=== PATIENT | male | born 1990 | race Caucasian/White ===

== ENCOUNTER 2016-09-16 19:07 | Emergency (ER) | payer SELFPAY ==
[2016-09-16 20:00] VITALS: BP 137/80
[2016-09-16] MEDS ORDERED: Oseltamivir CAP* 75 MG PO ONE (20:28)
--- NOTE | 2016-09-16 20:39 | UC ---
FLU HPI - HPI Summary HPI Summary: ONE DAY OF RUNNY NOSE HEADACHE BODY ACHES FEVER CHILLS. DAUGHTER HAS POSITIVE FLU SWAB - History of Current Complaint Chief Complaint: UC Stated Complaint: FLU LIKE SMPTOMS Time Seen by Provider: 09/16/16 19:54 Hx Obtained From: Patient Onset/Duration: Sudden Onset, Lasting Hours, Still Present, Worse Since - PROGRESSIVE Severity Currently: Moderate Severity Initially: Moderate Associated Signs & Symptoms: Positive: Fever, Myalgia, Cough, Nasal Congestion, Headache Related Hx: Possible Flu/Infectious Exposure - Allergy/Home Medications Allergies/Adverse Reactions: Allergies Allergy/AdvReac Type Severity Reaction Status Date / Time No Known Allergies Allergy Verified 09/16/16 19:53 PMH/Surg Hx/FS Hx/Imm Hx Previously Healthy: Yes - Surgical History Surgical History: None - Family History Known Family History: Positive: Other - DAUGHTER HAS INFLUENZA Negative: Respiratory Disease - Social History Occupation: Student Lives: With Family Alcohol Use: Occasionally Substance Use Type: None Smoking Status (MU): Heavy Every Day Tobacco Smoker Cessation Counseling: Patient Advised to Stop - Immunization History Most Recent Influenza Vaccination: none Review of Systems Constitutional: Fever, Chills Skin: Negative Eyes: Negative ENT: Nasal Discharge Respiratory: Cough Cardiovascular: Negative Gastrointestinal: Negative Genitourinary: Negative Motor: Negative Neurovascular: Negative Musculoskeletal: Myalgia Neurological: Negative Psychological: Negative All Other Systems Reviewed And Are Negative: Yes Physical Exam Triage Information Reviewed: Yes Appearance: No Pain Distress, Well-Nourished, Ill-Appearing Vital Signs: Initial Vital Signs Temp 99.3 F 09/16/16 19:54 Pulse 97 09/16/16 19:54 Resp 16 09/16/16 19:54 BP 137/80 09/16/16 19:54 Pulse Ox 99 09/16/16 19:54 Vital Signs Reviewed: Yes Eye Exam: Normal Eyes: Positive: Conjunctiva Clear ENT Exam: Normal ENT: Positive: Normal ENT inspection, Hearing grossly normal, Pharynx normal, TMs normal Dental Exam: Normal Neck exam: Normal Neck: Positive: Supple, Nontender, No Lymphadenopathy. Negative: Nuchal Rigidity, Tenderness @ Respiratory Exam: Normal Respiratory: Positive: Chest non-tender, Lungs clear, Normal breath sounds, No respiratory distress, No accessory muscle use Cardiovascular Exam: Normal Cardiovascular: Positive: RRR, No Murmur, Pulses Normal Abdominal Exam: Normal Abdomen Description: Positive: Nontender, No Organomegaly Musculoskeletal Exam: Normal Musculoskeletal: Positive: Strength Intact, ROM Intact Neurological Exam: Normal Psychological Exam: Normal Psychological: Positive: Normal Response To Family Skin Exam: Normal Flu Course/Dx - Differential Dx/Diagnosis Differential Diagnosis/HQI/PQRI: Influenza Provider Diagnoses: INFLUENZA Discharge - Discharge Plan Condition: Stable Disposition: HOME Prescriptions: Oseltamivir CAP* [Tamiflu CAP*] 75 mg PO BID #10 cap Patient Education Materials: Influenza (ED) Forms: *Work Release Referrals: [facility] [Outside]
== END 2016-09-16 20:49 | disposition home or self-care (01) ==
LOC: UCEAST 19:07
DX: J11.1 Influenza due to unidentified influenza virus with other respiratory manifestations (principal); F17.210 Nicotine dependence, cigarettes, uncomplicated
CPT/HCPCS: 87502; 99202; A9270-GY; G0463

== ENCOUNTER 2017-05-13 15:26 | Emergency (ER) | payer SELFPAY ==
[2017-05-13 16:07] VITALS: BP 126/68
--- NOTE | 2017-05-13 16:50 | UC ---
Lower Extremity/Ankle HPI - History of Current Complaint Chief Complaint: UCLowerExtremity Stated Complaint: FOOT PAIN Time Seen by Provider: 05/13/17 16:35 Hx Obtained From: Patient Onset/Duration: Gradual Onset - patient has had fungal feet for many months, states he wears socks, but works on feet every day. over past week his R foot has become very painful, red and toes swollen. he has tried OTC "creams" but nothing works Aggravating Factor(s): Nothing Alleviating Factor(s): Nothing Able to Bear Weight: Yes - Allergies/Home Medications Allergies/Adverse Reactions: Allergies Allergy/AdvReac Type Severity Reaction Status Date / Time No Known Allergies Allergy Verified 09/16/16 19:53 PMH/Surg Hx/FS Hx/Imm Hx Previously Healthy: Yes - Surgical History Surgical History: None - Family History Known Family History: Positive: Other - daughter has flu Negative: Respiratory Disease - Social History Occupation: Employed Full-time - [employer] Lives: With Family Alcohol Use: Rare Substance Use Type: None Smoking Status (MU): Heavy Every Day Tobacco Smoker Type: Cigarettes Cessation Counseling: Patient Advised to Stop - Immunization History Most Recent Influenza Vaccination: none Review of Systems Constitutional: Negative Respiratory: Negative Cardiovascular: Negative Musculoskeletal: Negative Neurological: Negative Psychological: Negative All Other Systems Reviewed And Are Negative: Yes Physical Exam Triage Information Reviewed: Yes Appearance: Well-Appearing, No Pain Distress, Well-Nourished Vital Signs: Initial Vital Signs Temp 98.2 F 05/13/17 16:02 Pulse 74 05/13/17 16:02 Resp 18 05/13/17 16:02 BP 126/68 05/13/17 16:02 Pulse Ox 99 05/13/17 16:02 Eye Exam: Normal Respiratory Exam: Normal Cardiovascular Exam: Normal Cardiovascular: Positive: Pulses Normal, Brisk Capillary Refill Musculoskeletal Exam: Normal Musculoskeletal: Positive: Strength Intact, ROM Intact Neurological Exam: Normal Psychological Exam: Normal Skin Exam: Other - bilateral cracking, erythema soles of feet and between toes, moist, maserated skin. R foot is erythemic at base of toes and toes are swollen and tender Lower Extremity Course/Dx - Differential Dx/Diagnosis Differential Diagnosis/HQI/PQRI: Cellulitis, Other - athletes foot, trnch feet Provider Diagnoses: fungal skin infection. cellulitis R foot Discharge - Discharge Plan Condition: Good Disposition: HOME Prescriptions: Cephalexin CAP* [Keflex 500 CAP*] 500 mg PO QID #40 cap Clotrimazole/Betamethasone* [Lotrisone Cream*] 1 applic TOPICAL BID #30 gm Patient Education Materials: Athlete's Foot (ED), Antifungals (On the skin) Additional Instructions: keep your feet very dry-change socks during day if they get wet use cream as prescribed and take antibiotic as prescribed. return here if no better 2 weeks you need to establish with a primary care provider
== END 2017-05-13 17:20 | disposition home or self-care (01) ==
LOC: UCEAST 15:26
DX: B35.3 Tinea pedis (principal); L03.115 Cellulitis of right lower limb; F17.210 Nicotine dependence, cigarettes, uncomplicated
CPT/HCPCS: 99212; G0463